=== PATIENT | male | born 1980 | race Caucasian/White ===

== ENCOUNTER → 2017-03-09 | Outpatient (CLI) | payer BC | END | disposition home or self-care (01) | LOC: RAD.S 02-04 14:00 | DX: R31.9 Hematuria, unspecified (principal); Z53.9 Procedure and treatment not carried out, unspecified reason ==

== ENCOUNTER → 2017-03-11 | Outpatient (CLI) | payer BC | END | disposition home or self-care (01) | LOC: RAD.S 16:13 | DX: R31.9 Hematuria, unspecified (principal) ==